=== PATIENT | male | born 1975 | race Caucasian/White ===

== ENCOUNTER 2018-06-13 17:14 | Inpatient (IN) | payer OTHER ==
--- NOTE | 2018-06-13 17:34 | PDOC ---
Rapid Medical Evaluation Medical Evaluation: I have performed a brief in-person evaluation of this patient. The patient presents with a chief complaint of: Laceration to distal tip of L index finger around 1 hour ago; unsure of last tetanus; cut with electric saw I have ordered the following: Tdap, L finger xray The patient will proceed to the ED for further evaluation. 06/13/18 17:30
[2018-06-13] MEDS ORDERED: DIPHTH,PERTUSS(ACELL),TET 0.5 ML DISP.SYRIN IM ONE (17:35)
[2018-06-13 17:37] VITALS: BMI 27.3
[2018-06-13] MEDS ORDERED: ACETAMINOPHEN 325 MG TABLET (FP) PO ONE (19:31)
--- NOTE | 2018-06-13 19:36 | PDOC ---
Attending Attestation - HPI HPI: 06/13/18 20:11 The patient is a 43 year old male with no significant past medical history who presents to the ED s/p injury earlier today. 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 Patient states he was bleeding a lot at first and also reports pain to his left index finger. He took one advil for pain. Denies LOC. Denies dizziness or lightheadedness. Denies focal numbness/weakness/tingling. Denies any other symptoms. - Physicial Exam PE: 06/13/18 20:12 Constitutional: Awake, alert, oriented. No acute distress. Head: Normocephalic. Atraumatic Eyes: PERRL. EOMI. Conjunctivae are not pale. ENT: Mucous membranes are moist and intact. Posterior pharynx without exudates or erythema. Uvula midline. Neck: Supple. Full ROM. No lymphadenopathy. Cardiovascular: Regular rate. Regular rhythm. S1, S2 regular. Distal pulses are 2+ and symmetric. Pulmonary/Chest: No evidence of respiratory distress. Clear to auscultation bilaterally No wheezing, rales or rhonchi. Abdominal: Soft and non-distended. There is no tenderness. No rebound, guarding or rigidity. No organomegaly. No palpable masses. Good bowel sounds. Back: No CVA tenderness. Musculoskeletal: No edema. No cyanosis. No clubbing. Full range of motion in all extremities. Nocalf tenderness. Radial/pedal pulses are intact and 2+ bilaterally Skin: + Left index finger is avulsed from the nail upwards, no active bleeding, ooze from site, exposed bone, nothing to reattach, sensation intact. Skin is warm and dry. No petechiae. No purpura. Neurological: Alert and oriented to person, place, and time. Cranial nerves II -XII are grossly intact. Normal speech. Strength is grossly symmetric. No sensory deficits. Psychiatric: Good eye contact. Normal interaction, affect and behavior. <Sven Wyatt - Last Filed: 06/13/18 20:11> - Resident Resident Name: Maddi Fuller - ED Attending Attestation I have performed the following: I have examined & evaluated the patient, The case was reviewed & discussed with the resident, I agree w/resident's findings & plan, Exceptions are as noted - Medical Decision Making 06/13/18 19:35 I, Dr. Denia Bernal DO, attest that this document has been prepared under my direction and personally reviewed by me in its entirety. I further attest, that it accurately reflects all work, treatment, procedures and medical decision -making performed by me. 06/13/18 20:06 43yo male with L hand first digit finger avulsion -will clean the wound -will obtain xray -will discuss with HAND/plastics -will give iv ancef, update tetanus -will monitor and reassess 06/13/18 20:[address] Hilliard - no answer, left message call placed to Dr. Leyva - NPO after midnight, will see patient in consult admit to microblog sent to [facility] 06/13/18 21:07 resident discussed the case with [facility] who accepts pt to service <Denia Bernal - Last Filed: 06/13/18 21:08> Attestations - Attestations 06/13/18 20:12 Documentation prepared by Sven Wyatt, acting as medical clerical assistant for Denia Bernal DO <Sven Wyatt - Last Filed: 06/13/18 20:11>
[2018-06-13] MEDS ORDERED: CEFAZOLIN 1 GM in DEXTROSE 5%-WATER - 50 ML IVPB ONE (20:05)
--- NOTE | 2018-06-13 20:05 | PDOC ---
History of Present Illness - General Chief Complaint: Injury Stated Complaint: LACERATION Time Seen by Provider: 06/13/18 18:25 History Source: Patient Exam Limitations: No Limitations - History of Present Illness Initial Comments: Pt is a 43 yo M, with no known medical history (no PCP follow-up for "at least a few years"), who is presenting with laceration to distal tip of L index finger. Pt is accompanied by his friend, and friend/quarter supervisor service is interpreting ([place]i) for us. Pt states around 4 pm, he was cutting through wood with a circular saw, and his hand slipped, cutting the L index finger on the metal circular saw. Pt states he immediately elevated his hand when he saw the blood coming from his finger, which soaked through multiple paper towels. He took only 1 advil for pain, and takes no regular blood thinning medication. When he saw the blood, he felt light-headed, but did not have LOC or fall. Pt denies any recent fevers/chills, headache, vision changes, chest pain, palpitations, SOB, nausea/vomiting, abdominal pain, urinary symptoms, diarrhea/ constipation, or leg swelling. Social: Pt denies any cigarette, alcohol, or drug use. Pt denies any recent travel or sick contacts. Surgical: no relevant history Family: no relevant history 06/16/18 16:27 Past History - Travel Traveled outside of the country in the last 30 days: No Close contact w/someone who was outside of country & ill: No - Past Medical History Allergies/Adverse Reactions: Allergies Allergy/AdvReac Type Severity Reaction Status Date / Time No Known Allergies Allergy Verified 06/13/18 18:32 Home Medications: Ambulatory Orders Cephalexin Monohydrate [Keflex -] 500 mg PO Q6H #28 capsule 06/15/18 COPD: No HTN: No Hypercholesterolemia: No - Surgical History Orthopedic Surgery: No - Immunization History Immunization Up to Date: Yes - Suicide/Smoking/Psychosocial Hx Smoking History: Never smoked Hx Alcohol Use: No Drug/Substance Use Hx: No Review of Systems - Review of Systems Able to Perform ROS?: Yes Is the patient limited Gabonese proficient: No Constitutional: Yes: Weight Stable. No: Chills, Diaphoresis, Fever, Loss of Appetite, Weakness HEENTM: No: Blurred Vision, Recent change in vision, Double Vision Respiratory: No: Cough, Shortness of Breath Cardiac (ROS): No: Chest Pain, Edema, Palpitations, Syncope ABD/GI: No: Diarrhea, Nausea, Poor Appetite, Poor Fluid Intake, Vomiting : No: Dysuria Musculoskeletal: Yes: See HPI, Joint Pain (pain at L index finger after injury) . No: Back Pain, Muscle Weakness, Joint Stiffness Integumentary: Yes: See HPI (injury to distal tip L index finger). No: Rash Neurological: No: Numbness, Paresthesia, Seizure, Unsteady Gait Endocrine: No: Increased Urine, Change in Weight Hematologic/Lymphatic: Yes: Other (only current bleeding to open L index finger after injury, no easy bleeding in the past). No: Anemia, Blood Clots, Easy Bleeding, Easy Bruising All Other Systems: Reviewed and Negative *Physical Exam - Vital Signs Last Vital Signs Temp Pulse Resp BP Pulse Ox 98 F 91 H 16 161/105 H 96 06/13/18 17:32 06/13/18 17:32 06/13/18 17:32 06/13/18 17:32 06/13/18 17:32 - Physical Exam General Appearance: Yes: Nourished, Appropriately Dressed, Mild Distress (Pt holding L index finger, bandaged. Has soaked through multiple 2/2 gauze pads. Holding L arm elevated.) HEENT: positive: EOMI, MARIA ISABEL, Normal ENT Inspection, Normal Voice, Pharynx Normal , Hearing Grossly Normal. negative: Scleral Icterus (R), Scleral Icterus (L), Pharyngeal Erythema, Tonsillar Exudate, Tonsillar Erythema Neck: positive: Trachea midline. negative: Tender, Rigid, Lymphadenopathy (R), Lymphadenopathy (L) Respiratory/Chest: positive: Lungs Clear, Normal Breath Sounds. negative: Chest Tender, Respiratory Distress, Accessory Muscle Use, Crackles, Wheezing Cardiovascular: positive: Regular Rhythm, Regular Rate, S1, S2. negative: Edema , JVD, Murmur Comments:: Radial +4 b/l. 06/16/18 16:32 Gastrointestinal/Abdominal: positive: Normal Bowel Sounds, Flat, Soft. negative : Tender, Organomegaly, Pulsatile Mass, Distended, Guarding Rectal Exam: positive: deferred Lymphatic: negative: Adenopathy, Tenderness Musculoskeletal: positive: Normal Inspection. negative: CVA Tenderness, Decreased Range of Motion, Vertebral Tenderness Extremity: positive: Normal Capillary Refill, Normal Range of Motion, Pelvis Stable. negative: Normal Inspection, Tender, Cyanosis, Pedal Edema, Erythema Integumentary: positive: Normal Color, Dry, Warm, Other (Avulsion injury to distal fingertip of L index finger. Oblique cut through nailbed (not involving germinal center), and L finger tip pad. Bleeding at slow drip, controlled with pressure. Strength and sensation intact, good radial pulse. No foreign debris present.). 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 negative: Numbness, Sensory Deficit, Depressed Affect Moderate Sedation - Procedure Monitoring Vital Signs: Procedure Monitoring Vital Signs Temperature 98 F 06/13/18 17:32 Pulse Rate 91 H 06/13/18 17:32 Respiratory Rate 16 06/13/18 17:32 Blood Pressure 161/105 H 06/13/18 17:32 O2 Sat by Pulse Oximetry (%) 96 06/13/18 17:32 Procedures - Laceration/Wound Repair Left Hand 2nd digit Wound Length: to 2.5 cm Wound Explored: clean, no foreign body present Wound's Depth, Shape: nail-avulsed (avulsion of finger tip) Irrigated w/ Saline: Yes Betadine Prep: Yes Anesthesia: 1% Lidocaine (Digital nerve block, L index finger) Amount of Anesthetic (ccs): 2 Wound Debrided: minimal Progress: No sutures placed as pt avulsed full fingertip and half of nailbed of L index finger. Avulsion site was cleaned extensively with pressure irrigation normal saline wash (~30 cc). Surrounding area was cleaned with chloroprep sponges and betadine. Digital block of the L index finger was done for further irrigation. Surgicell was placed with bulky pressure bandage and bleeding was then controlled. 06/14/18 00:14 ED Treatment Course - LABORATORY CBC & Chemistry Diagram: 06/15/18 07:00 06/15/18 07:00 - Medications Given in the ED: ED Medications Discontinued Medications Generic Name Dose Route Start Last Admin Trade Name Freq PRN Reason Stop Dose Admin Diphtheria/Tetanus/Acell Pertussis 0.5 ml 06/13/18 17:35 06/13/18 18:43 Boostrix - IM 06/13/18 17:36 0.5 ml .ONCE ONE Administration Medical Decision Making - Medical Decision Making Pt was seen at bedside, also will be seen by attending Dr. Bernal. Pt presenting with laceration to distal tip of L index finger. Pt is accompanied by his friend, and friend with [facility] service is interpreting ([place]i). Pt states around 4 pm, he was cutting through wood with a circular saw, and his hand slipped, cutting the L index finger on the metal circular saw. Pt states he immediately elevated his hand when he saw the blood coming from his finger, which soaked through multiple paper towels. When he saw the blood, he felt light -headed, but did not have LOC or fall. Pt denies any recent fevers/chills, headache, vision changes, chest pain, palpitations, SOB, nausea/vomiting, abdominal pain, urinary symptoms, diarrhea/constipation, or leg swelling. PE showed avulsed tip of L index finger, bone of distal phalange visible. Oblique cut through the nail bed, with no involvement of nail germinal center. Flexion and extension of finger, hand, and wrist intact. Neurovascularly intact with strength/sensation/radial pulse. Pt A/O x3. Considering open laceration of skin vs avulsion with fracture of the distal L index/2nd phalange. Ordered work-up including x-ray of L index finger. Provided 975 mg PO tylenol, boostrix, and 1 g ancef for improvement of pain, and antibiotic/tetanus coverage. Will continue to reassess pt and monitor for symptomatic improvement. 06/13/18 19:32 Avulsion site was cleaned extensively with pressure irrigation normal saline wash (~30 cc). Surrounding area was cleaned with chloroprep sponges and betadine. Digital block of the L index finger was done for further saline irrigation (additional ~30 cc). Surgicell was placed with bulky pressure bandage and bleeding was then controlled. Pain well controlled after tylenol and digital block. No current complaints at this point. Multiple calls were placed to Dr. Hilliard with no return phone call between 19: 32 and 20:46. Dr. Leyva was called and will accept the patient. Consult orders placed for Dr. Hilliard and Dr. Leyva. Hospitalist team was microblogged. Admission order placed. 06/13/18 20:46 Hospitalist team at bedside to see pt. 06/13/18 21:04 CBC and CMP generally WNL. PT/INR WNL. Pt lying comfortably and awaiting bed upstairs. Pain and bleeding controlled, vitals stable. 06/13/18 23:08 06/16/18 16:18 *DC/Admit/Observation/Transfer Diagnosis at time of Disposition: Avulsion of fingertip Qualifiers: Encounter type: initial encounter Qualified Code(s): S61.209A - Unspecified open wound of unspecified finger without damage to nail, initial encounter - Discharge Dispostion Disposition: HOME Condition at time of disposition: Improved Decision to Admit order: Yes - Prescriptions - Referrals - Patient Instructions - Post Discharge Activity
[2018-06-13] MEDS ORDERED: CEFAZOLIN 1 GM/D5W 1 GM/50 ML BAG ONE (20:32)
--- NOTE | 2018-06-13 21:14 | PN ---
Teaching Attending Note Name of Resident: Rl Maier ATTENDING PHYSICIAN STATEMENT I saw and evaluated the patient. I reviewed the resident's note and discussed the case with the resident. I agree with the resident's findings and plan as documented. SUBJECTIVE: Patient is a 43 year old man with no significant PMH who presents to the ER after a finger injury earlier today. 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 Patient states he was bleeding a lot at first and also reports pain to his left index finger. He took one Advil tablet for pain. Denies LOC, dizziness, focal numbness or tingling. OBJECTIVE: Alert Vital Signs Period Temp Pulse Resp BP Sys/Osorio Pulse Ox Last 24 Hr 98 F 91 16 161/105 96 HEENT: No Jaundice, eye redness or discharge, PERRLA, EOMI. Normocephalic, atraumatic. External ears are normal and hearing is grossly intact. No nasal discharge. Neck: Supple, nontender. No palpable adenopathy or thyromegaly. No JVD Chest: Good effort. Clear to auscultation and percussion. Heart: Regular. No S3, rub or murmur Abdomen: Not distended, soft, nontender and no HSM. No rebound or guarding. Normoactive bowel sounds. Ext: Peripheral pulses intact. No leg edema. Left index finger is avulsed from the nail upwards, no active bleeding, exposed bone with sensation intact. No reduced ROM. Skin: Warm and dry. No petechiae, rash or ecchymosis. Neuro: Alert. Oriented x3. CN 2-12 grossly intact. Sensation grossly intact in all four extremities and DTR are symmetric. Current Medications Generic Name Dose Route Start Last Admin Trade Name Freq PRN Reason Stop Dose Admin Acetaminophen 650 mg 06/13/18 21:44 Tylenol - PO Q4H PRN PAIN OR FEVER Home Medications Medication Instructions Recorded NK [No Known Home Medication] 06/13/18 Abnormal Lab Results 06/13/18 21:03 Random Glucose 107 H Calcium 8.3 L Total Bilirubin 1.3 H AST 38 H Total Protein 8.6 H ASSESSMENT AND PLAN: 1. Finger Injury - Got tetanus shot and IV Ancef. Plastic surgery has been consulted. Patient kept NPO for possible surgery tomorrow. Repeat BP was normal. Patient concedes that he needs prescription glasses but has not gotten them - we advised him to get his glasses and use them when working. 2. DVT prophylaxis - SCDs, TEDS, Early ambulation. 3. Advance directives - Full code
[2018-06-13 21:20] LABS: HEMATOCRIT 43.9 % (35.4-49); HEMOGLOBIN 15.8 GM/dL (11.7-16.9); MCH 32.2 pg (25.7-33.7); MCHC 35.9 g/dl (32.0-35.9); MEAN CELL VOLUME 89.6 fl (80-96); MEAN PLT VOLUME 9.7 fl (7.5-11.1); PLATELET COUNT 169 K/MM3 (134-434); RDW 12.9 % (11.9-15.9); WHITE BLOOD COUNT 6.2 K/mm3 (4.0-10.0)
--- NOTE | 2018-06-13 21:22 | HP ---
CHIEF COMPLAINT: Injury PCP: None HISTORY OF PRESENT ILLNESS: 43yo M without any medical history who was fixing an elevator at 4pm when he lost hold on a circular saw and hit is L index finger. Pt reports there was about 4 tbsp of blood, however this diminished and the bleeding ceased. Pt denies any blood thinner use. Pt reports that he is supposed to wear glasses, however he does not have any. He denies any lightheadedness, blurry vision, muscle jerks or abnormal movements, headaches, shortness of breath, CP. Pt does not remember when his last tetanus vaccination was. Currently pt's pain is well controlled after digital nerve block. PAST MEDICAL HISTORY: None PAST SURGICAL HISTORY: None Social History: Smoking: Denies Alcohol: 1-3 drinks socially and occassionally Drugs: Denies Family History: Allergies No Known Allergies Allergy (Verified 06/13/18 18:32) HOME MEDICATIONS: Home Medications Medication Instructions Recorded NK [No Known Home Medication] 06/13/18 REVIEW OF SYSTEMS As per HPI PHYSICAL EXAMINATION Vital Signs - 24 hr 06/13/18 17:32 Temperature 98 F Pulse Rate 91 H Respiratory 16 Rate Blood Pressure 161/105 H O2 Sat by Pulse 96 Oximetry (%) GENERAL: NAD, awake, alert, and fully oriented, sitting. HEENT: NC/AT, EOMI, MAURICE, peripheral vision intact, Snellen chart 20/20 with both eyes NECK: No JVD LUNGS: CTA bilaterally. No wheezes, and no crackles. No accessory muscle use. HEART: RRR, normal S1 and S2 without murmur ABDOMEN: Soft, NT/ND, normoactive bowel sounds, no guarding. MUSCULOSKELETAL: No CVA tenderness. ROM in L 1, 3-5 digits intact. EXTREMITIES: 2+ radial pulses, capillary refill <2sec in digits 1 + 3-5. 2nd L digit with avulsed tip and bone exposed, no foreign bodies seen, no drainage. No peripheral edema. 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 Normal speech. Normal gait. Strength 5/5 in L upper extremity including hand abduction and adduction PSYCHIATRIC: Cooperative. Good eye contact. Appropriate mood and affect. SKIN: Warm, dry, normal turgor, no rashes Laboratory Results - last 24 hr 06/13/18 21:03 WBC 6.2 RBC 4.90 Hgb 15.8 Hct 43.9 MCV 89.6 MCH 32.2 MCHC 35.9 RDW 12.9 Plt Count 169 MPV 9.7 ASSESSMENT/PLAN: Avulsion of 2nd digit with exposed bone --Surgery and plastics contacted --Pt comfortable with digital nerve block currently --Can put on Tylenol 650mg PRN for pain and escalate as needed --Tetanus booster already given --F/u labs and correct electrolytes as needed Fluids not indicated Nutrition: NPO after midnight DVT PPX -- Early ambulation; holding heparin Case discussed with Dr. Kaela Maier, DO - IM PGY-2 Visit type - Emergency Visit Emergency Visit: Yes ED Registration Date: 06/13/18 Care time: The patient presented to the Emergency Department on the above date and was hospitalized for further evaluation of their emergent condition. - New Patient This patient is new to me today: Yes Date on this admission: 06/13/18 - Critical Care Critical Care patient: No
[2018-06-13 21:43] LABS: INR 0.97 (0.83-1.09); PROTHROMBIN TIME (PATIENT) 11.5 SEC (9.7-13.0)
[2018-06-13] MEDS ORDERED: ACETAMINOPHEN 325 MG TABLET (FP) PO PRN (21:44)
[2018-06-13 21:45] LABS: ALBUMIN 4.5 g/dl (3.4-5.0); ALK PHOS 98 U/L (45-117); ANION GAP 9 MMOL/L (8-16); BILIRUBIN,TOTAL 1.3 mg/dL (0.2-1); BLOOD UREA NITROGEN 13 mg/dL (7-18); CALCIUM 8.3 mg/dL (8.5-10.1); CHLORIDE 105 mmol/L (98-107); CO2 23 mmol/L (21-32); CREATININE 0.9 mg/dL (0.55-1.3); GLUCOSE,RANDOM 107 mg/dL (74-106); POTASSIUM 3.7 mmol/L (3.5-5.1); SGOT/AST 38 U/L (15-37); SGPT/ALT 56 U/L (13-61); SODIUM 137 mmol/L (136-145); TOT PROT 8.6 g/dl (6.4-8.2)
[2018-06-14] MEDS ORDERED: AMPICILLIN NA/SULBACTAM NA 1.5 GM in SODIUM CHLORIDE 100 ML IVPB SCH ×2 (08:00→18:00)
[2018-06-14] MEDS: DEXTROSE 5%-LACTATED RINGERS 1,000 ML IV SCH ×2 (08:48→11:58)
[2018-06-14] MEDS ORDERED: LIDOCAINE HCL 2% (20ML MULTI-DOSE VIAL) NR ONE (12:44)
[2018-06-14] MEDS ORDERED: LIDOCAINE HCL 1%, 10 MG/ML (20ML VIAL) ONE (12:52)
--- NOTE | 2018-06-14 13:09 | CONSULT ---
Consult Consult Specialty:: HAND AND MICROSURGERY Reason for Consultation:: LEFT INDEC FINGER INJURY - History of Present Illness Chief Complaint: LEFT INFEX FINGER INJURY History of Present Illness: 43 yo male with no significant past medical history who presents to the ED s/p injury at work earlier yesterday. 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 Patient states he was bleeding a lot at first and also reports pain to his left index finger. He took one advil for pain. Denies LOC. Denies dizziness or lightheadedness. Denies focal numbness/weakness/tingling. Denies any other symptoms. We were called to cover later after Dr. Hilliard could not be reached on consult. - History Source History Provided By: Patient, Medical Record Limitations to Obtaining History: No Limitations - Alcohol/Substance Use Hx Alcohol Use: No - Smoking History Smoking history: Never smoked Home Medications - Allergies Allergies/Adverse Reactions: Allergies Allergy/AdvReac Type Severity Reaction Status Date / Time No Known Allergies Allergy Verified 06/13/18 18:32 - Home Medications Home Medications: Ambulatory Orders NK [No Known Home Medication] 06/13/18 Review of Systems - Review of Systems Constitutional: denies: Chills, Fever Eyes: denies: Blind Spots, Recent Change in Vision HENT: denies: Difficult Swallowing, Throat Pain Neck: denies: Pain on Movement, Tenderness Cardiovascular: denies: Chest Pain, Palpitations Respiratory: denies: Cough, SOB Gastrointestinal: denies: Abdominal Pain, Constipation, Diarrhea Genitourinary: denies: Discharge, Dysuria Breasts: denies: Discharge from Nipple, Pain, Skin Changes Musculoskeletal: denies: Joint Swelling, Muscle Pain Integumentary: denies: Bruising, Lesions Neurological: denies: Syncope, Tremors Endocrine: denies: Unexplained Weight Gain, Unexplained Weight Loss Hematology/Lymphatic: denies: Easily Bruised, Excessive Bleeding Psychiatric: denies: Anxiety, Depression Physical Exam Vital Signs: Vital Signs Temperature 98.4 F 06/14/18 11:00 Pulse Rate 80 06/14/18 11:00 Respiratory Rate 20 06/14/18 11:00 Blood Pressure 141/77 06/14/18 11:00 O2 Sat by Pulse Oximetry (%) 94 L 06/14/18 10:32 Vital Signs Period Temp Pulse Resp BP Sys/Osorio Pulse Ox Last 24 Hr 98 F-98.6 F 80-91 16-20 127-161/75-105 94-98 Constitutional: Yes: Well Nourished, No Distress, Calm Eyes: Yes: Conjunctiva Clear, EOM Intact HENT: Yes: Atraumatic, Normocephalic Neck: Yes: Supple, Trachea Midline Cardiovascular: Yes: Regular Rate and Rhythm, S1, S2 Respiratory: Yes: Regular, CTA Bilaterally Gastrointestinal: Yes: Normal Bowel Sounds, Soft. No: Tenderness, Tenderness, Rebound ...Rectal Exam: Yes: Deferred Renal/: No: CVA Tenderness - Left, CVA Tenderness - Right Musculoskeletal: No: Muscle Pain, Muscle Weakness Extremities: Yes: Deformity (left index finger tip avulsion with bleeding and exposed bone.). No: Cold, Cool Edema: No Peripheral Pulses WNL: Yes Integumentary: No: Erythema, Tattoos Wound/Incision: Yes: Dressing Dry and Intact, Dressing Removed, Unapproximated Neurological: Yes: Alert, Oriented Psychiatric: Yes: Alert, Oriented Labs: CBC, BMP 06/13/18 21:03 06/13/18 21:03 Imaging - Results X-ray: Report Reviewed, Image Reviewed (open tuft fracture) Problem List - Problems (1) Open fracture of tuft of distal phalanx of finger Assessment/Plan: 43 yo male with left index finger open tuft fracture sustained at work with a saw. 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 Patient desires to proceed with operation - will take to OR for above. Informed consent signed for same. Thank you for the opportunity to participate in the care of this patient. Code(s): S62.639B - DISP FX OF DISTAL PHALANX OF UNSP FINGER, INIT FOR OPN FX (2) Contact with powered saw as cause of accidental injury Code(s): W31.2XXA - CONTACT W POWERED WOODWORKING AND FORMING MACHINES, INIT (3) Avulsion of fingertip Code(s): S61.209A - UNSP OPEN WOUND OF UNSP FINGER W/O DAMAGE TO NAIL, INIT Qualifiers: Encounter type: initial encounter Qualified Code(s): S61.209A - Unspecified open wound of unspecified finger without damage to nail, initial encounter
[2018-06-14] MEDS ORDERED: AMPICILLIN NA/SULBACTAM NA 1.5 GM VIAL ONE (17:30)
[2018-06-14] MEDS ORDERED: SODIUM CHLORIDE 100 ML IVPB ONE (17:31)
--- NOTE | 2018-06-14 17:34 | PN ---
Teaching Attending Note Name of Resident: Sandeep Pichardo ATTENDING PHYSICIAN STATEMENT I saw and evaluated the patient. I reviewed the resident's note and discussed the case with the resident. I agree with the resident's findings and plan as documented with exceptions below. SUBJECTIVE: Patient seen and examined, left index finger pain, no complaints otherwise. OBJECTIVE: Vital Signs Period Temp Pulse Resp BP Sys/Osorio Pulse Ox Last 24 Hr 98.4 F-98.6 F 80-86 16-20 127-141/75-77 94-98 Intake & Output 06/11/18 06/12/18 06/13/18 06/14/18 23:59 23:59 23:59 23:59 Weight 164 lb 164 lb General: sitting in wheelchair no acute distress Extremities: left index finger dressing, able to move finger, left radial pulses intact Home Medications Medication Instructions Recorded NK [No Known Home Medication] 06/13/18 Active Medications Acetaminophen (Tylenol -) 650 mg PO Q4H PRN PRN Reason: PAIN OR FEVER Ampicillin Sodium/Sulbactam (Sodium 1.5 gm/ Sodium Chloride) 100 mls @ 200 mls/ hr IVPB Q8H-IV ANJALI Last Admin: 06/14/18 17:35 Dose: 200 mls/hr Dextrose/Lactated Ringer's (D5-Lr -) 1,000 mls @ 100 mls/hr IV ASDIR ANJALI Last Admin: 06/14/18 11:58 Dose: 100 mls/hr Laboratory Results - last 24 hr 06/13/18 06/13/18 06/13/18 07:43 21:03 21:03 WBC 6.2 RBC 4.90 Hgb 15.8 Hct 43.9 MCV 89.6 MCH 32.2 MCHC 35.9 RDW 12.9 Plt Count 169 MPV 9.7 PT with INR 11.50 INR 0.97 Sodium Potassium Chloride Carbon Dioxide Anion Gap BUN Creatinine Creat Clearance w eGFR Random Glucose Calcium Total Bilirubin AST ALT Alkaline Phosphatase Total Protein Albumin Blood Type O POSITIVE Antibody Screen 06/13/18 06/13/18 21:03 21:03 WBC RBC Hgb Hct MCV MCH MCHC RDW Plt Count MPV PT with INR INR Sodium 137 Potassium 3.7 Chloride 105 Carbon Dioxide 23 Anion Gap 9 BUN 13 Creatinine 0.9 Creat Clearance w eGFR > 60 Random Glucose 107 H Calcium 8.3 L Total Bilirubin 1.3 H AST 38 H ALT 56 Alkaline Phosphatase 98 Total Protein 8.6 H Albumin 4.5 Blood Type O POSITIVE Antibody Screen Negative ASSESSMENT AND PLAN: 43 yom with no significant PMHx admitted with left index finger injury -Left index finger injury Plan: Surgery input noted. Plan for repair, will follow up. Unasyn day 1. s/p DPT D5-LR Pain control DVTPPX post op per surgery Dispo pending clinical improvement.
[2018-06-14] MEDS ORDERED: ONDANSETRON 4 MG/2 ML VIAL IVPUSH PRN (19:05)
--- NOTE | 2018-06-14 19:11 | PN ---
Physical Exam: SUBJECTIVE: Patient seen and examined at bedside this morning. Endorses pain at left index finger, and bleeding has subsided. Denies drainage. Denies fevers, chills, shortness of breath, chest pain, palpitations, abdominal pain, nausea, vomiting, diarrhea. OBJECTIVE: Vital Signs Period Temp Pulse Resp BP Sys/Osorio Pulse Ox Last 24 Hr 98.4 F-98.6 F 80-86 16-20 127-141/75-77 94-98 GENERAL: The patient is awake, alert, and fully oriented, in no acute distress. HEAD: Normal with no signs of trauma. EYES: PERRL, extraocular movements intact, sclera anicteric, conjunctiva clear. No ptosis. ENT: Ears normal, nares patent, oropharynx clear without exudates, moist mucous membranes. NECK: Trachea midline, full range of motion, supple. LUNGS: Breath sounds equal, clear to auscultation bilaterally, no wheezes, no crackles, no accessory muscle use. HEART: Regular rate and rhythm, S1, S2 without murmur, rub or gallop. ABDOMEN: Soft, nontender, nondistended, normoactive bowel sounds, no guarding, no rebound, no hepatosplenomegaly, no masses. EXTREMITIES: 2+ radial and dorsalis pedis pulses b/l, warm, well-perfused, no edema. Left index finger noted with tip avulsion wound. No bleeding, no drainage. No edema noted. NEUROLOGICAL: Cranial nerves II through XII grossly intact. Normal speech PSYCH: Normal mood, normal affect. SKIN: Warm, dry, normal turgor, no rashes or lesions noted Laboratory Results - last 24 hr 06/13/18 06/13/18 06/13/18 07:43 21:03 21:03 WBC 6.2 RBC 4.90 Hgb 15.8 Hct 43.9 MCV 89.6 MCH 32.2 MCHC 35.9 RDW 12.9 Plt Count 169 MPV 9.7 PT with INR 11.50 INR 0.97 Sodium Potassium Chloride Carbon Dioxide Anion Gap BUN Creatinine Creat Clearance w eGFR Random Glucose Calcium Total Bilirubin AST ALT Alkaline Phosphatase Total Protein Albumin Blood Type O POSITIVE Antibody Screen 06/13/18 06/13/18 21:03 21:03 WBC RBC Hgb Hct MCV MCH MCHC RDW Plt Count MPV PT with INR INR Sodium 137 Potassium 3.7 Chloride 105 Carbon Dioxide 23 Anion Gap 9 BUN 13 Creatinine 0.9 Creat Clearance w eGFR > 60 Random Glucose 107 H Calcium 8.3 L Total Bilirubin 1.3 H AST 38 H ALT 56 Alkaline Phosphatase 98 Total Protein 8.6 H Albumin 4.5 Blood Type O POSITIVE Antibody Screen Negative Active Medications Generic Name Dose Route Start Last Admin Trade Name Freq PRN Reason Stop Dose Admin Acetaminophen 650 mg 06/13/18 21:44 Tylenol - PO Q4H PRN PAIN OR FEVER Ampicillin Sodium/Sulbactam 100 mls @ 200 mls/hr 06/14/18 18:00 06/14/18 17: 35 Sodium 1.5 gm/ Sodium Chloride IVPB 200 mls/hr Q8H-IV ANJALI Administration Dextrose/Lactated Ringer's 1,000 mls @ 100 mls/hr 06/14/18 08:45 06/14/18 11: 58 D5-Lr - IV 100 mls/hr ASDIR ANJALI Administration ASSESSMENT/PLAN: Patient is a 43 year old male with no significant history, presents with complaint of left index finger wound, after injury with circular saw. Left finger injury -Surgery consult (Dr. Leyva) appreciated. For OR today -F/U post-op recommendations -Unasyn 1.5 grams Q8H -Tylenol 650mg PO Q4H for pain FEN -IV D5 lactated ringer's @100mL/ hour -Follow CMP -NPO pending surgical intervention Prophylaxis -Held for surgical intervention. Will reinstate post operatively once appropriate. Disposition -Continue care in medical surgical floor Visit type - Emergency Visit Emergency Visit: Yes ED Registration Date: 06/13/18 Care time: The patient presented to the Emergency Department on the above date and was hospitalized for further evaluation of their emergent condition. - New Patient This patient is new to me today: Yes Date on this admission: 06/14/18 - Critical Care Critical Care patient: No - Discharge Referral Referred to [facility] Med P.C.: No
[2018-06-14] MEDS ORDERED: LACTATED RINGERS SOLUTION 1,000 ML IV SCH (19:15)
[2018-06-14] MEDS ORDERED: PROPOFOL 20 ML ONE ×3 (19:22)
[2018-06-14] MEDS ORDERED: BUPIVACAINE HCL/PF 0.5% (5MG/ML) 10 ML VIAL ONE (19:28)
--- NOTE | 2018-06-14 19:47 | OP ---
Operative Note - Note: Operative Date: 06/14/18 Pre-Operative Diagnosis: open tuft fracture left index finger saw avulsion injury Operation: revision amputation of left index finger tip Findings: open tuff fracture debrided Post-Operative Diagnosis: Same as Pre-op Surgeon: Nakul Leyva Anesthesiologist/PLAY BACK OPERATOR: Mara Batres Anesthesia: General, Local (marcaine 0.5% 10ml ) Estimated Blood Loss (mls): 1 Instrument used (Debridements only): rongeur, scissor Fluid Volume Replaced (mls): 200 Operative Report Dictated: Yes
[2018-06-14] MEDS ORDERED: DEXTROSE 5%-LACTATED RINGERS 1,000 ML IV SCH (20:15)
[2018-06-14] MEDS ORDERED: ACETAMINOPHEN 325 MG TABLET (FP) PO PRN (20:15)
[2018-06-15] MEDS ORDERED: AMPICILLIN NA/SULBACTAM NA 1.5 GM VIAL ONE ×2 (01:20→09:40)
[2018-06-15] MEDS ORDERED: SODIUM CHLORIDE 100 ML IVPB ONE ×2 (01:21→09:40)
[2018-06-15] MEDS: AMPICILLIN NA/SULBACTAM NA 1.5 GM in SODIUM CHLORIDE 100 ML IVPB SCH ×2 (01:29→09:43)
[2018-06-15 08:29] LABS: HEMATOCRIT 43.1 % (35.4-49); HEMOGLOBIN 14.6 GM/dL (11.7-16.9); MCH 30.9 pg (25.7-33.7); MEAN CELL VOLUME 90.9 fl (80-96); MEAN PLT VOLUME 9.8 fl (7.5-11.1); PLATELET COUNT 159 K/MM3 (134-434); RBC 4.74 M/mm3 (4.00-5.60); RDW 12.8 % (11.9-15.9); WHITE BLOOD COUNT 6.4 K/mm3 (4.0-10.0)
[2018-06-15 09:08] LABS: ALBUMIN 3.5 g/dl (3.4-5.0); ALK PHOS 61 U/L (45-117); ANION GAP 8 MMOL/L (8-16); BILIRUBIN,TOTAL 2.5 mg/dL (0.2-1); BLOOD UREA NITROGEN 10 mg/dL (7-18); CALCIUM 8.3 mg/dL (8.5-10.1); CHLORIDE 106 mmol/L (98-107); CO2 25 mmol/L (21-32); CREATININE 0.8 mg/dL (0.55-1.3); GLUCOSE,RANDOM 95 mg/dL (74-106); MAGNESIUM 2.1 mg/dL (1.8-2.4); PHOSPHOROUS 3.1 mg/dL (2.5-4.9); POTASSIUM 3.7 mmol/L (3.5-5.1); SGOT/AST 28 U/L (15-37); SGPT/ALT 47 U/L (13-61); SODIUM 140 mmol/L (136-145); TOT PROT 7.2 g/dl (6.4-8.2)
[2018-06-15] MEDS ORDERED: KETOROLAC TROMETHAMINE 30 MG/1 ML VIAL IVPUSH PRN (09:59)
--- NOTE | 2018-06-15 10:01 | PN ---
Progress Note (short form) - Note Progress Note: POD #1 - s/p repair of left index finger under general anesthesia. VSS. Pt. doing well, resting comfortably in bed. No complaints. No apparent anesthetic complications noted. Continue current care.
--- NOTE | 2018-06-15 11:49 | PN ---
Teaching Attending Note Name of Resident: Abraham Joshua ATTENDING PHYSICIAN STATEMENT I saw and evaluated the patient. I reviewed the resident's note and discussed the case with the resident. I agree with the resident's findings and plan as documented with exceptions below. SUBJECTIVE: Patient seen and examined. finger pain well controlled. No new complaints. OBJECTIVE: Vital Signs Period Temp Pulse Resp BP Sys/Osorio Pulse Ox Last 24 Hr 97.8 F-98.4 F 73-87 14-97 103-130/58-89 95-100 Intake & Output 06/12/18 06/13/18 06/14/18 06/15/18 23:59 23:59 23:59 23:59 Intake Total 1350 200 Output Total 625 Balance 1350 -425 Weight 164 lb 164 lb General: sitting in bed in no acute distress Extremities: left index finger dressing with sutures, no active discharge or bleed, able to move fingers well. ASSESSMENT AND PLAN: 43 yom with no significant PMHx admitted with left index finger injury -Left index finger injury Plan: s/p surgical repair doing well Discussed with kamila Mace for d/c with outpatient follow up. Medical clinic information provided. patient advised to keep wound clean and dry, outpatient surgery follow up in 1 week. Dc home today, plan discussed with patient, all questions answered.
--- NOTE | 2018-06-15 13:41 | DS ---
Physical Exam: SUBJECTIVE: Patient seen and examined. Offers no new complaints. Denies pain in his finger. No events overnight. OBJECTIVE: Vital Signs Period Temp Pulse Resp BP Sys/Osorio Pulse Ox Last 24 Hr 97.8 F-98.4 F 73-87 14-97 103-130/58-89 95-100 PHYSICAL EXAM GENERAL: The patient is awake, alert, and fully oriented, in no acute distress. EYES: PERRL, conjunctiva clear. No ptosis. ENT: Ears normal, nares patent, oropharynx clear without exudates, moist mucous membranes. NECK: supple. LUNGS: Breath sounds equal, clear to auscultation bilaterall HEART: Regular rate and rhythm, S1, S2 without murmur, rub or gallop. ABDOMEN: Soft, nontender, nondistended, normoactive bowel sounds EXTREMITIES: 2+ radial and dorsalis pedis pulses b/l, warm, well-perfused, no edema. L finger dressing.. No bleeding, no drainage. NEUROLOGICAL: Cranial nerves II through XII grossly intact. Normal speech LABS Laboratory Results - last 24 hr 06/15/18 06/15/18 07:00 07:00 WBC 6.4 RBC 4.74 Hgb 14.6 Hct 43.1 MCV 90.9 MCH 30.9 MCHC 34.0 RDW 12.8 Plt Count 159 MPV 9.8 Sodium 140 Potassium 3.7 Chloride 106 Carbon Dioxide 25 Anion Gap 8 BUN 10 Creatinine 0.8 Creat Clearance w eGFR > 60 Random Glucose 95 Calcium 8.3 L Phosphorus 3.1 Magnesium 2.1 Total Bilirubin 2.5 H AST 28 ALT 47 Alkaline Phosphatase 61 Total Protein 7.2 Albumin 3.5 HOSPITAL COURSE: Date of Admission:06/13/18 Patient is a 43 year old male with no significant history, presents with complaint of left index finger wound, after injury with circular saw. Left index finger injury -s/p surgical repair (06/14) -was given Unasyn 1.5 grams - discharge on Keflex 500mg q6h for 1 week -doing well post op -d/c. to follow up with surgery in 2 weeks. Date of Discharge: 06/15/18 Minutes to complete discharge: 35 Discharge Summary Reason For Visit: AVULSION OF FINGER Current Active Problems Avulsion of fingertip (Acute) Contact with powered saw as cause of accidental injury (Acute) Open fracture of tuft of distal phalanx of finger (Acute) Condition: Improved - Instructions Diet, Activity, Other Instructions: Postoperative instructions: You had a revision amputation of left index finger on 06/14/[address] Nakul Leyva of [facility]. Activity: Resume your usual activities gradually, but no heavy exertion or lifting more than 10-15 pounds for 4-6 weeks. Eat lightly at first, but advance to your usual diet as tolerated. Pain: For pain, you may use and alternate Tylenol (acetaminophen) 1-2 pills and/ or ibuprofen 200 mg (1-3 pills) every 6 hours each as needed; this means that you can take one OR the other at 3-hour intervals. If you are prescribed a Tylenol/narcotic combination for severe pain, use it instead of plain Tylenol as needed and switch back when your pain starts decreasing. Do not take more than 4000 mg of acetaminophen in a day. Take medications as prescribed or indicated on the labeling. Follow-up: Call Dr. Leyva office at [phone] to make your postop appointment (Sunday in approximately 2 weeks after surgery as advised). Clinic is held in the Diagnostic Center on the first floor of [facility]. Call the office if you have: * increasing pain not responsive to pain medication * fever of 101F or higher * unusual or increasing bleeding or drainage from wounds * increasing redness or swelling at wound sites Keep your wound dry and clean until you see your doctor. Also, see your primary medical doctor within 1-2 weeks. You will need to take Antibiotics (Keflex) 4 times a day for 7 days. Please picker the antibiotics from your pharmacy. If you develop fever or chills, please call your doctor. If it is an emergency, go to your nearest emergency room. Referrals: Carlito Quezada MD [Staff Physician] - 1 Week Nakul Leyva MD [Staff Physician] - 2 Weeks Disposition: HOME - Home Medications Comprehensive Discharge Medication List: Ambulatory Orders Cephalexin Monohydrate [Keflex -] 500 mg PO Q6H #28 capsule 06/15/18 This patient is new to me today: Yes Date on this admission: 06/15/18 Emergency Visit: Yes ED Registration Date: 06/13/18 Care time: The patient presented to the Emergency Department on the above date and was hospitalized for further evaluation of their emergent condition. Critical Care patient: No - Discharge Referral Referred to [facility] Med P.C.: No
[2018-06-15 14:11] VITALS: BP 137/72; PULSE 88; TEMP 98.8
--- NOTE | 2018-06-26 14:51 | OP ---
DATE OF OPERATION: 06/14/2018 PREOPERATIVE DIAGNOSIS: Open tuft fracture, left index finger, table saw avulsion injury. POSTOPERATIVE DIAGNOSIS: Open tuft fracture, left index finger, table saw avulsion injury. PROCEDURE: Revision amputation left index finger tip. ATTENDING SURGEON: Nakul Leyva MD LIGHT RAIL TRANSIT OPERATOR: None. ANESTHESIOLOGIST: Mara Batres DO ANESTHESIA TYPE: General with local. Local was 0.5% Marcaine. A total of 10 mL was given in a digital block fashion. ESTIMATED BLOOD LOSS: 1 mL. INTRAVENOUS FLUID REPLACED: 200 mL. FINDINGS: Open tuft fracture for the left index finger. INSTRUMENTS USED FOR DEBRIDEMENT: Rongeur and scissors. INDICATIONS: The patient is a 43-year-old male presenting after a work injury, open tuft fracture left index finger, a table saw avulsion injury. Counseled regarding the risks, benefits and alternatives of surgical revision amputation. He signed informed consent and was taken for the procedure. DESCRIPTION OF PROCEDURE: The patient was brought to the operating room and was placed in the supine position on the operating table with left arm extended 90 degrees perpendicular to the body's midline axis at the shoulder. The left hand was prepped and draped into a standard surgical field. Lower extremities had SCDs placed for compression. The patient received intravenous antibiotics prior to the start of surgery. He was induced under general anesthesia, endotracheally intubated, at which point we began first with the left index finger. Formal timeout identified the operative site and procedure. With all parties in agreement we began first with debridement of the site using rongeurs and scissors at the open tuft fracture. The bone was debrided back to just below the nail plate. The nail plate itself was elevated with a [place] elevator and then removed with a clamp atraumatically from the nail matrix. We then proceeded with closure of the remaining wound once adequate length of the tuft had been debrided to closure with 4-0 nylon in interrupted fashion. The patient was closed at the tip of the finger with only a small amount of length being lost. The wound was then dressed with bacitracin, Xeroform, 4 x 4 gauze and a roll of gauze. He was given instructions to follow up in a period of 1 week. He was stable throughout the procedure. Counts were correct. MD GUILLAUME Sykes/[id number]
== END 2018-06-15 16:41 | disposition home or self-care (01) | DRG 316 ==
LOC: JER 17:14 → JERFT 17:14 → JERBED 20:47 → J6S 06-14 10:20
PROVIDERS: ADMIT Internal Medicine; ATTEND Hospitalist
PROC: 0X6P0Z3 Detachment at Left Index Finger, Low, Open Approach (ICD-10-PCS; principal; 2018-06-14 16:00)
DX: S62.631B Displaced fracture of distal phalanx of left index finger, initial encounter for open fracture (principal); W31.82XA Contact with other commercial machinery, initial encounter; Y93.89 Activity, other specified; Y92.69 Other specified industrial and construction area as the place of occurrence of the external cause; Y99.0 Civilian activity done for income or pay
CPT/HCPCS: 36415; 73140-TC-LT-FY; 80053; 83735; 84100; 85027; 85610; 86850; 86900; 86901; 90715; 94760; 99285-25

== ENCOUNTER 2018-06-20 15:10 | Emergency (ER) | payer OTHER ==
[2018-06-20 15:19] VITALS: BP 185/97; PULSE 77; TEMP 98.4; BMI 27.3
--- NOTE | 2018-06-20 15:36 | PDOC ---
Suture Removal/Wound Check HPI - History of Present Illness Chief Complaint: Revisit,Wound Recheck Stated Complaint: REVISIT Time Seen by Provider: 06/20/18 15:15 History Source: Yes: Patient Treated at: [facility] ED - Previous ED Treatment Type of procedure performed on last visit: Yes: Other (open fracture revision left index finger by 06/15/18. pt states he is here to see .) Past History - Past Medical History Allergies/Adverse Reactions: Allergies Allergy/AdvReac Type Severity Reaction Status Date / Time No Known Allergies Allergy Verified 06/20/18 15:13 Home Medications: Ambulatory Orders Gabapentin 100 mg PO ASDIR 06/20/18 COPD: No HTN: No Hypercholesterolemia: No - Surgical History Orthopedic Surgery: No - Immunization History Immunization Up to Date: Yes - Suicide/Smoking/Psychosocial Hx Smoking History: Never smoked Hx Alcohol Use: No Drug/Substance Use Hx: No *Physical Exam - Vital Signs Last Vital Signs Temp Pulse Resp BP Pulse Ox 98.4 F 77 18 185/97 H 99 06/20/18 15:13 06/20/18 15:13 06/20/18 15:13 06/20/18 15:13 06/20/18 15:13 - Physical Exam General Appearance: Yes: Nourished, Appropriately Dressed HEENT: positive: EOMI Extremity: positive: Tender (left index finger with bulky finger dressing intact no bleeding ), Other (no streaking, no redness no swelling, wound is fresh scabbed blood no pus ) Integumentary: positive: Normal Color Neurologic: positive: Fully Oriented, Alert, Normal Mood/Affect, Normal Response , Motor Strength 5/5 Moderate Sedation - Procedure Monitoring Vital Signs: Procedure Monitoring Vital Signs Temperature 98.4 F 06/20/18 15:13 Pulse Rate 77 06/20/18 15:13 Respiratory Rate 18 06/20/18 15:13 Blood Pressure 185/97 H 06/20/18 15:13 O2 Sat by Pulse Oximetry (%) 99 06/20/18 15:13 Procedures - Additional Procedures Progress: 06/20/18 16:11 dressing changed no active bleeding or oozing of pus no redness Medical Decision Making - Medical Decision Making 06/20/18 15:35 pt here for wound check s/p surgical procedure open fracture left index finger paged at 1530 called OR , staff states has left the OR called office they states they have paged him 06/20/18 15:36 06/20/18 16:11 spoke to office staff state in OR unavailable, I reviewed dc inst from surgery visit, I called his office and set up follow up visit for June 26 at 1230 in the [facility] at this [facility]. I have explained via polish translation the plan with the patient who understands the inst. The wound has been examined is CDI dressing has been changed nv intact *DC/Admit/Observation/Transfer Diagnosis at time of Disposition: Encounter for post surgical wound check - Discharge Dispostion Disposition: HOME Condition at time of disposition: Good - Referrals Referrals: Nakul Leyva MD [Staff Physician] - - Patient Instructions Additional Instructions: follow up June 26 at 1230 Diagnostic Center with at this hospital [address] keep the dressing dry and intact seguimiento 2 de enero a las 1230 [facility] con en [address] mantener el apsito seco e intacto - Post Discharge Activity
== END 2018-06-20 16:16 | disposition home or self-care (01) ==
LOC: JERFT 15:10
DX: Z48.817 Encounter for surgical aftercare following surgery on the skin and subcutaneous tissue (principal); Z48.01 Encounter for change or removal of surgical wound dressing
CPT/HCPCS: 99281-25